=== PATIENT | male | born 1995 | race Caucasian/White ===

== ENCOUNTER 2023-06-06 17:01 | Day surgery (SDC) | payer MEDICAID ==
[~2023-06-06] VITALS: Ht 170.2 cm; Wt 107.0 kg
[2023-06-06] MEDS ORDERED: PRINIVIL10 MG PO (17:31)
[2023-06-06] MEDS ORDERED: PROAIR HFA0.09 MG/AC IH (17:32)
[2023-06-06] MEDS ORDERED: TYLENOL 325MG325 MG PO (17:33)
[2023-06-06 17:42] VITALS: BP 139/90; PULSE 94; TEMP 98.5
[2023-06-06] MEDS ORDERED: PRILOSEC 20MG20 MG PO (18:15)
[2023-06-06 18:33] VITALS: BP 123/68; PULSE 82; TEMP 97.9
[2023-06-06 18:48] VITALS: BP 135/77; PULSE 75
--- NOTE | 2023-06-06 19:08 | NUR ---
183-REPORT OBTAINED FROM FRANCESCO MCCORD. PATIENT BROUGHT TO [facility] VIA CART, DROWSY BUT RESPONSIVE ON ARRIVAL. VITAL SIGNS TAKEN, VSS. DENIES PAIN OR NAUSEA. FAMILY AT BEDSIDE. 184-PT TOLERATING PO LIQUIDS WITHOUT COMPLAINT, NO COUGH NOTED. VSS. 185-DISCHARGE INSTRUCTIONS REVIEWED WITH PT AND FAMILY, QUESTIONS INVITED. 1854-IV CATHETER DISCONTINUED, TIP INTACT. PRESSURE BANDAGE APPLIED. PATIENT DRESSED INDEPENDENTLY AND AMBULATED TO BATHROOM WITH STEADY GAIT 1904-PT DISCHARGED HOME TO [facility] VIA WHEELCHAIR, ACCOMPANIED BY FAMILY. ALL BELONGINGS AND DC INSTRUCTIONS SENT WITH PT
== END 2023-06-06 19:05 | disposition home or self-care (01) ==
LOC: SDCO 17:01
DX: T18.128A Food in esophagus causing other injury, initial encounter (principal); K21.00 Gastro-esophageal reflux disease with esophagitis, without bleeding; K22.2 Esophageal obstruction; E66.9 Obesity, unspecified; K22.10 Ulcer of esophagus without bleeding; W44.F3XA Food entering into or through a natural orifice, initial encounter
CPT/HCPCS: J0330; J1100; J1885; J2405; J2704; J3010; J7120